=== PATIENT | male | born 1965 | race Two or more races ===

== ENCOUNTER → 2025-05-13 | Outpatient (CLI) | payer BC, SELFPAY ==
[2025-05-13 17:58] LABS: Carcinoembryonic Antigen 1.2 ng/mL (0.0-5.0)
== END | disposition home or self-care (01) ==
LOC: COPL 16:06
PROVIDERS: Referring Provider Specialist; Visit Provider Specialist
DX: E78.9 Disorder of lipoprotein metabolism, unspecified (principal)
CPT/HCPCS: 36415; 82378

== ENCOUNTER 2025-05-21 06:55 | Day surgery (SDC) | payer BC, SELFPAY ==
--- NOTE | 2025-05-20 09:55 | EKG_ITS ---
[facility] Test Date: 2025-05-20 Pat Name: VIRY CHAUDHRY Department: Room: - Gender: Male [employer] Architect: YAEL : 1965 Requested By: Sharon Monterroso Order Number: [id number] Reading MD: Sharon Monterroso Measurements Intervals [place] Rate: 67 P: 9 [place]: 156 QRS: 54 QRSD: 92 T: 32 QT: 418 QTc: 442 Interpretive Statements SINUS RHYTHM NONSPECIFIC T-WAVE ABNORMALITY No previous ECG available for comparison /[id number]/[email or web address]/[id number]
[2025-05-20 10:46] LABS: Alanine Aminotransferase 16 U/L (10-49); Albumin, Serum 4.7 gm/dL (3.5-5.0); Albumin/Globulin Ratio 1.6 (1.2-2.2); Alkaline Phosphatase 119 U/L (46-116); Anion Gap 9 (7-16); Aspartate Amino Transferase 26 U/L (0-34); BUN/Creatinine Ratio 10 Ratio (12-20); Bilirubin,Total 1.1 mg/dL (0.3-1.2); Blood Urea Nitrogen 8 mg/dL (9-23); Calcium 10.0 mg/dL (8.3-10.6); Calcium (Corrected) 10.0 mg/dL (8.5-10.1); Carbon Dioxide 28.1 mMol/L (20.0-31.0); Chloride 104 mMol/L (98-107); Creatinine (Component) 0.8 mg/dL (0.6-1.3); Globulin 2.9 gm/dL (2.3-3.5); Glucose 121 mg/dL (74-106); Osmolality,Calculated 280 (275-295); Potassium 3.8 mMol/L (3.4-5.1); Sodium 141 mMol/L (136-145); Total Protein 7.6 gm/dL (5.7-8.2); eGFR > 60 See Note
[2025-05-20 10:51] LABS: INR 1.2 (0.9-1.3); Partial Thromboplastin Time 28.8 Seconds (22.0-36.0); Prothrombin Time 12.6 Seconds (9.0-12.2)
[2025-05-20 11:33] VITALS: BMI 31.8
[2025-05-21 07:31] VITALS: BP 165/100; PULSE 88; RESP 18; TEMP 36.7; O2SAT 98; BMI 30.8
[2025-05-21] MEDS: ONDANSETRON INJ 2 MG/ML INJ 2 ML 4 MG IVP (07:38)
[2025-05-21] MEDS: RINGERS LACTATED 1000 ML 1,000 ML 125 ML IV (09:06)
[2025-05-21 09:07] VITALS: BP 169/92; PULSE 85; RESP 18; O2SAT 96
[2025-05-21 09:35] VITALS: BP 132/85; PULSE 90; RESP 17; TEMP 36.4; O2SAT 96
--- NOTE | 2025-05-21 09:40 | SUR.PHASEII ---
0935 patient into recovery with no acute distress noted, v/s stable, patient complaining of a leg cramp. patient requests bedpan to pass stool. bedpan provided. patient passes light brown liquid. patient awake alert and oriented x4. report received from Delia BARRAGAN and .
[2025-05-21 09:45] VITALS: BP 125/73; PULSE 79; RESP 18; O2SAT 97
--- NOTE | 2025-05-21 09:50 | SUR.PHASEII ---
patient states that his leg cramp went away, v/s stable, patient denies pain and nausea. patient continues to pass flatus.
[2025-05-21 09:55] VITALS: BP 145/84; PULSE 81; RESP 19; O2SAT 95
[2025-05-21 10:05] VITALS: BP 141/83; PULSE 78; RESP 20; O2SAT 97
--- NOTE | 2025-05-21 10:11 | SUR.PHASEII ---
josi patient's present. patient in wheelchair. Justina RN giving D/C instructions.
--- NOTE | 2025-05-21 10:19 | SUR.PHASEII ---
patient and patient's verbalizes understanding of D/C instructions. Patient discharged home.
== END 2025-05-21 10:19 | disposition home or self-care (01) ==
PROVIDERS: Referring Provider Specialist; Visit Provider Specialist
PROC: 0DJD8ZZ Inspection of Lower Intestinal Tract, Via Natural or Artificial Opening Endoscopic (ICD-10-PCS; CPT 45330; 2025-05-21 08:45)
DX: K62.4 Stenosis of anus and rectum (principal); K64.1 Second degree hemorrhoids; K63.3 Ulcer of intestine
CPT/HCPCS: 45340; 45331; 36415; 80053; 85610; 85730; 93005; A4217; C1725; J2405; J3490; J7120

== ENCOUNTER 2025-07-02 09:15 | Day surgery (SDC) | payer BC, SELFPAY ==
[2025-07-01 11:21] VITALS: BMI 30.9
[2025-07-02] VITALS (12 sets, daily range): BP systolic 124–163; BP diastolic 81–104; PULSE 67–82; RESP 12–21; TEMP 36.6–36.7; O2SAT 94–100; BMI 30.4
[2025-07-02] MEDS: SODIUM CHLORIDE 0.9% 500 ML 500 ML 20 ML IV (11:10)
[2025-07-02] MEDS: fentaNYL CIT INJ 50 mCg/ML AMP 2ML (ASD USE ONLY) IVP (11:22)
[2025-07-02] MEDS: MIDAZOLAM INJ 1 MG/ML VIAL 2 ML (ASD USE ONLY) 2 MG IVP (11:22)
== END 2025-07-02 12:56 | disposition home or self-care (01) ==
PROVIDERS: Referring Provider Specialist; Visit Provider Specialist
PROC: 0DBE8ZX Excision of Large Intestine, Via Natural or Artificial Opening Endoscopic, Diagnostic (ICD-10-PCS; CPT 45380; principal; 2025-07-02 10:00)
DX: Z12.11 Encounter for screening for malignant neoplasm of colon (principal); K62.4 Stenosis of anus and rectum; K64.1 Second degree hemorrhoids; Z85.048 Personal history of other malignant neoplasm of rectum, rectosigmoid junction, and anus; E11.9 Type 2 diabetes mellitus without complications; E78.5 Hyperlipidemia, unspecified; Z79.899 Other long term (current) drug therapy; Z79.84 Long term (current) use of oral hypoglycemic drugs
CPT/HCPCS: 45386; A4649; J1200; J2250; J3010; J7999